=== PATIENT | female | born 1980 | race Caucasian/White ===

== ENCOUNTER 2019-12-19 09:23 | Outpatient (REF) | payer MEDICAID, SELFPAY ==
[2019-12-19 12:57] LABS: TSH reflex Free T4 1.15 mIU/mL (0.32-4.0)
[2019-12-24 14:41] LABS: Von Willebrand Factor Antigen 123 % (50-217)
[2019-12-24 15:02] LABS: Factor VIII Activity 137 % normal (50-180); Ristocetin Cofactor 78 % NORMAL (42-200)
== END 2019-12-19 09:24 | disposition home or self-care (01) ==
LOC: HO.LAB 09:23
PROVIDERS: PCP Internal Medicine; Referring Provider Internal Medicine; Visit Provider Obstetrics & Gynecology
DX: N93.9 Abnormal uterine and vaginal bleeding, unspecified (principal)
CPT/HCPCS: 36415; 84443; 85240; 85246; 88305; 99214; 99215

== ENCOUNTER 2020-01-03 10:36 | Outpatient (REF) | payer MEDICAID, SELFPAY ==
--- NOTE | 2020-01-03 11:00 | US_ITS ---
EXAMINATION: ULTRASOUND PELVIS COMPLETE. CLINICAL INFORMATION: Abnormal uterine vaginal bleeding. COMPARISON: None TECHNIQUE: Transabdominal and transvaginal imaging of pelvis is performed. FINDINGS: The uterus is anteverted, anteflexed and measures 11.5 cm in length, 4.7 cm in AP and 5.7 cm in transverse dimension. The uterus is homogeneous echotexture. Small nabothian cyst is seen in the cervix. Minimal free fluid is seen in the endometrial canal with endometrial thickness measurement of 0.8 cm Right ovary measures 4.3 x 3.6 x 2.8 cm and volume 22.7 mL. There is an anechoic cyst measuring 2.7 x 2.4 x 2.9 cm. Left ovary measures 3.1 x 3.1 x 2.4 cm and volume 12.1 mL. There is anechoic cyst measuring 2.3 x 2.0 x 2.2 cm. US/US pelvic complete IMPRESSION: Small nabothian cysts. Minimal fluid in the endometrial canal with endometrial thickness of 0.8 cm. Bilateral small simple ovarian cysts.
--- NOTE | 2020-01-03 11:00 | US_ITS ---
EXAMINATION: ULTRASOUND PELVIS COMPLETE. CLINICAL INFORMATION: Abnormal uterine vaginal bleeding. COMPARISON: None TECHNIQUE: Transabdominal and transvaginal imaging of pelvis is performed. FINDINGS: The uterus is anteverted, anteflexed and measures 11.5 cm in length, 4.7 cm in AP and 5.7 cm in transverse dimension. The uterus is homogeneous echotexture. Small nabothian cyst is seen in the cervix. Minimal free fluid is seen in the endometrial canal with endometrial thickness measurement of 0.8 cm Right ovary measures 4.3 x 3.6 x 2.8 cm and volume 22.7 mL. There is an anechoic cyst measuring 2.7 x 2.4 x 2.9 cm. Left ovary measures 3.1 x 3.1 x 2.4 cm and volume 12.1 mL. There is anechoic cyst measuring 2.3 x 2.0 x 2.2 cm. US/US transvaginal IMPRESSION: Small nabothian cysts. Minimal fluid in the endometrial canal with endometrial thickness of 0.8 cm. Bilateral small simple ovarian cysts.
== END 2020-01-03 10:37 | disposition home or self-care (01) ==
LOC: HO.US 10:36
PROVIDERS: PCP Internal Medicine; Visit Provider Obstetrics & Gynecology
DX: N93.9 Abnormal uterine and vaginal bleeding, unspecified (principal)
CPT/HCPCS: 76830; 76856

== ENCOUNTER 2021-08-31 15:53 | Outpatient (REF) | payer MEDICAID, SELFPAY ==
[2021-08-31 16:48] LABS: Hematocrit 28.2 % (37.0-47.0); Mean Corpuscular HGB Conc 28.4 g/dl (31.0-35.0); Mean Corpuscular Hemoglobin 17.9 pg (27.0-33.0); Mean Platelet Volume 9.5 fL (9.4-12.3); Platelet Count 500 X10*3/uL (160-400); Red Blood Count 4.47 X10*6/uL (4.20-5.50); Red Cell Distribution Width 19.1 % (11.0-16.0); White Blood Count 10.5 X10*3/uL (4.8-10.8)
[2021-08-31 16:51] LABS: Mean Corpuscular Volume 63.1 fL (80.0-98.0)
[2021-08-31 17:46] LABS: HCG Quantitative < 2 mIU/mL; TSH reflex Free T4 0.89 uIU/mL (0.32-4.0)
[2021-09-01 03:09] LABS: CT PCR NOT DETECTED (Not Detect.); NG PCR NOT DETECTED (Not Detect.)
[2021-09-03 06:46] LABS: HPV mRNA E6/E7 rflx Not Detected (Not Detected)
== END 2021-08-31 15:54 | disposition home or self-care (01) ==
LOC: HO.LAB 15:53
PROVIDERS: PCP Internal Medicine; Visit Provider Obstetrics & Gynecology
DX: Z01.419 Encounter for gynecological examination (general) (routine) without abnormal findings (principal); N93.9 Abnormal uterine and vaginal bleeding, unspecified
CPT/HCPCS: 36415; 84443; 84702; 85027; 87491; 87591; 87624; 88142

== ENCOUNTER 2021-09-24 09:04 | Outpatient (REF) | payer MEDICAID, SELFPAY | END 2021-09-24 09:05 | disposition home or self-care (01) | LOC: HO.LAB 09:04 | PROVIDERS: Visit Provider Obstetrics & Gynecology | DX: N93.9 Abnormal uterine and vaginal bleeding, unspecified (principal) | CPT/HCPCS: 58100; 88305 ==

== ENCOUNTER → 2021-10-12 10:53 | Outpatient (BNVA) | payer MEDICAID, SELFPAY | PROVIDERS: PCP Internal Medicine; Visit Provider Obstetrics & Gynecology | DX: N93.9 Abnormal uterine and vaginal bleeding, unspecified (principal) | CPT/HCPCS: 99212 ==

== ENCOUNTER → 2021-10-15 14:07 | Outpatient (BNVA) | payer MEDICAID, SELFPAY | PROVIDERS: PCP Internal Medicine; Visit Provider Obstetrics & Gynecology | DX: Z30.430 Encounter for insertion of intrauterine contraceptive device (principal) | CPT/HCPCS: 58300; J7298 ==

== ENCOUNTER 2021-10-20 10:43 | Outpatient (REF) | payer MEDICAID, SELFPAY ==
--- NOTE | ~2021-10-20 | US_ITS ---
EXAMINATION: US PELVIS CLINICAL INFORMATION: N93.9 - Abnormal uterine and vaginal bleeding, unspecified. Age 40. LMP 10/15/2021. COMPARISON: Ultrasound pelvis 01/03/2020 TECHNIQUE: Ultrasound of the pelvis is performed using both transabdominal and transvaginal transducers along with Doppler. Transvaginal imaging is performed due to inadequate visualization transabdominally. FINDINGS: Uterus: The uterus is anteverted and normal in size measuring 10.5 x 3.7 x 5.9 cm. Volume 91 mL. There is IUD in the uterine cavity. Endometrium is normal. No visible thickening. Double wall thickness estimated under 4 mm. The uterus is smooth in contour and has normal myometrial echogenicity. No visible fibroid. There are some small nabothian cysts in the cervix again seen, largest 0.7 cm. Trace fluid in the endocervical canal. Adnexa: Both ovaries are visualized. There is normal color flow to the adnexa. There is no ovarian torsion. There is no pelvic ascites or fluid collection. Right ovary measures 3.3 x 2.1 x 2.1 cm. Volume 7.6 mL. Incidental dominant follicle 1.3 cm. No right adnexal mass. Left ovary measures 3.6 x 1.8 x 1.9 cm. Volume 6.5 mL. No left adnexal mass. US/US pelvic and transvaginal IMPRESSION: Uterus: -Normal size. IUD present. Endometrial thickness is normal. -Incidental small nabothian cysts. No visible fibroid. Adnexa: -No adnexal mass or pelvic ascites.
--- NOTE | ~2021-10-20 | MM_ITS ---
EXAMINATION: MM SCREENING DIGITAL BREAST TOMOSYNTHESIS, BILATERAL CLINICAL INFORMATION: Screening. Asymptomatic. The lifetime risk of breast cancer based on the Tyrer-Cuzick Model is 12.9%. COMPARISON: Mammography: None TECHNIQUE: Digital breast tomosynthesis is performed in both the craniocaudal and mediolateral oblique views along with computer-aided detection (CAD). Synthesized 2D images are generated from the tomosynthesis. FINDINGS: There are scattered areas of fibroglandular density (ACR BI-RADS breast composition Category b). There are no significant masses, abnormal calcifications, or other abnormalities. MM/MM tomosynthesis screening BI IMPRESSION: No mammographic evidence of malignancy. ASSESSMENT: BI-RADS 1: Negative RECOMMENDATION: Routine annual mammography screening. This patient's information was entered into a reminder system with a target due date for their next mammogram.
== END 2021-10-20 10:44 | disposition home or self-care (01) ==
LOC: HO.US 10:43
PROVIDERS: Visit Provider Obstetrics & Gynecology
DX: N93.9 Abnormal uterine and vaginal bleeding, unspecified (principal); Z12.31 Encounter for screening mammogram for malignant neoplasm of breast
CPT/HCPCS: 76830; 76856; 77063; 77067

== ENCOUNTER 2021-10-21 12:45 | Outpatient (REF) | payer MEDICAID, SELFPAY | END 2021-10-21 12:46 | disposition home or self-care (01) | LOC: HO.MDS 12:45 | PROVIDERS: Visit Provider Internal Medicine | DX: D50.9 Iron deficiency anemia, unspecified (principal) | CPT/HCPCS: 96365; J1756 ==

== ENCOUNTER 2021-10-30 13:48 | Outpatient (REF) | payer MEDICAID, SELFPAY | END 2021-10-30 13:49 | disposition home or self-care (01) | LOC: HO.MDS 13:48 | PROVIDERS: Visit Provider Internal Medicine | DX: D50.9 Iron deficiency anemia, unspecified (principal) | CPT/HCPCS: 96365; J1756 ==

== ENCOUNTER 2021-11-06 13:53 | Outpatient (REF) | payer MEDICAID, SELFPAY | END 2021-11-06 13:54 | disposition home or self-care (01) | LOC: HO.MDS 13:53 | PROVIDERS: Visit Provider Internal Medicine | DX: D50.9 Iron deficiency anemia, unspecified (principal) | CPT/HCPCS: 96365; J1756 ==

== ENCOUNTER 2021-11-13 10:49 | Outpatient (REF) | payer MEDICAID, SELFPAY | END 2021-11-13 10:50 | disposition home or self-care (01) | LOC: HO.MDS 10:49 | PROVIDERS: Visit Provider Internal Medicine | DX: D50.9 Iron deficiency anemia, unspecified (principal) | CPT/HCPCS: 96365; J1756 ==

== ENCOUNTER 2021-11-18 10:26 | Outpatient (REF) | payer MEDICAID, SELFPAY | END 2021-11-18 10:27 | disposition home or self-care (01) | LOC: HO.MDS 10:26 | PROVIDERS: Visit Provider Internal Medicine | DX: D50.9 Iron deficiency anemia, unspecified (principal) | CPT/HCPCS: 96365; J1756 ==

== ENCOUNTER → 2022-01-14 14:08 | Outpatient (BNVA) | payer MEDICAID, SELFPAY | PROVIDERS: PCP Internal Medicine; Visit Provider Obstetrics & Gynecology | DX: Z30.431 Encounter for routine checking of intrauterine contraceptive device (principal); B37.2 Candidiasis of skin and nail; Z32.02 Encounter for pregnancy test, result negative | CPT/HCPCS: 81025; 99212 ==

== ENCOUNTER → 2022-09-02 14:35 | Outpatient (BNVA) | payer MEDICAID, SELFPAY | PROVIDERS: PCP Internal Medicine; Visit Provider Obstetrics & Gynecology ==

== ENCOUNTER 2022-09-28 17:57 | Emergency (ER) | payer MEDICAID, SELFPAY ==
--- NOTE | 2022-09-28 | ECG_ITS ---
Test Reason : CHEST PAIN Blood Pressure : / mmHG Vent. Rate : 080 BPM Atrial Rate : 080 BPM P-R Int : 150 ms QRS Dur : 076 ms QT Int : 372 ms P-R-T Axes : 043 016 024 degrees QTc Int : 429 ms Normal sinus rhythm Normal ECG No previous ECGs available Referred By: Generic ED Physician Electronically Signed By:LONI CHAMBERS MD
--- NOTE | ~2022-09-28 | XR_ITS ---
EXAMINATION: XR CHEST CLINICAL INFORMATION: Pain COMPARISON: None available. TECHNIQUE: 2 views of the chest were obtained. FINDINGS: The cardiomediastinal silhouette is within normal limits. The lungs are well expanded. There is no focal consolidation, edema, or effusion. No pneumothorax. No acute osseous abnormality. XR/XR chest 2V IMPRESSION: No evidence of acute cardiopulmonary findings .
[2022-09-28 18:14] VITALS: BP 139/92; PULSE 91; RESP 18; TEMP 36.1; O2SAT 100; BMI 36.0
--- NOTE | 2022-09-28 18:14 | ED.GENADULT ---
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 Pain is mostly localized in mid chest increases on palpation and movements been sharp intermittent lasting only for few sec, no shortness of breath Related Data Home Medications Medication Instructions Recorded Confirmed apixaban 5 mg tablet (Eliquis) 5 mg PO BID 08/31/21 10/06/21 famotidine 40 mg tablet 40 mg PO BEDTIME 08/31/21 Previous Rx's Medication Instructions Recorded clotrimazole-betamethasone 1 1 appl topical BID 5 days #45 grams 01/14/22 %-0.05 % topical cream xmjlqeitlu-wctiufmnzzblg-hgmggxfy 1 cap PO Q6H PRN headache #20 caps 09/28/22 50 mg-300 mg-40 mg capsule (Fioricet) Allergies Allergy/AdvReac Type Severity Reaction Status Date / Time Sulfa (Sulfonamide Allergy Intermediate rash Verified 09/28/22 18:14 Antibiotics) itching [SULFA (SULFONAMIDE ANTIBIOTICS)] Review of Systems Review of Systems: Yes all other systems are reviewed and are negative [facility] Past Medical History Medical History History of anemia History of thrombosis Surgical History History of History of tonsillectomy History of tubal ligation Family History Family History Maternal Grandmother Breast cancer Mother Uterine cancer Social History Social History Household Members: Spouse and Children Housing: House Alcohol intake: never Smoked in Last 30 Days: No Use of substances other than those prescribed or required for medical reasons: No Advance Directives: No Advance Directives Information Provided: No Patient : No service: No Current occupational status: employed Sexual orientation: Straight/Heterosexual Gender identity: Female Physical Exam ED Vital Signs: Vital Signs - 24 hr 09/28/22 18:14 Temperature 97.0 F Pulse Rate 91 Respiratory Rate 18 Blood Pressure 139/92 H Pulse Oximetry 100 Oxygen Delivery Method Room Air BMI result Body Mass Index 36.0 Appearance: Alert. Oriented X3. No acute distress. Eyes: No pallor/icterus ENT: Pharynx normal. Oral Mucosa moist Neck: Normal inspection. Neck supple. CVS: Normal heart rate and rhythm. Pulses normal. Tenderness left 2nd intercostal space Respiratory: No respiratory distress. Equal air entry bilateral, no wheezing/rales/rhonchi Abdomen: Soft and nontender. Bowel sounds are present, no mass palpable, no CVA tenderness Skin: Skin warm and dry. Normal skin color. Normal skin turgor. Extremities: No lower extremity edema. No calf tenderness Neuro: Oriented X 3. No motor deficit. No sensory deficit.No cerebellar signs , cranial nerves II-XII intact Course Course Course Narrative: RME- 41 year old female presents for evaluation of chest pain and headache for the last few days. Plan for EKG, chest x-ray, labs, covid swab. Patient has history of DVT on Eliquis Medications Administered Discontinued Medications Generic Name Dose Route Start Last Admin Trade Name Freq PRN Reason Stop Dose Admin Acetaminophen/Butalbital/Caffeine 1 tab 09/28/22 21:54 09/28/22 22:01 Butalb/Acetamin/Caff 50/325/40 Tablet PO 09/28/22 21:55 1 tab ONCE ONE Administration Medical Decision Making Medical Decision Making [facility] Narrative: Patient has atypical chest pain with normal cardiogram heart score 0 high sensitive troponin negative reproducible on palpation headache as in the past when she has migraine headache will give Fioricet Lab Data [facility] Lab Attestation statement: I reviewed the patient's lab results. 09/28/22 20:12 09/28/22 20:12 Labs: Lab Results 09/28/22 09/28/22 09/28/22 Range/Units 20:12 20:12 20:12 WBC 9.5 (4.8-10.8) X10*3/uL RBC 4.92 (4.20-5.50) X10*6/uL Hgb 12.2 D (12.0-16.0) g/dl Hct 38.2 D (37.0-47.0) % MCV 77.6 L (80.0-98.0) fL MCH 24.8 L (27.0-33.0) pg MCHC 31.9 (31.0-35.0) g/dl RDW 15.9 (11.0-16.0) % Plt Count 408 H D (160-400) X10*3/uL MPV 9.5 (9.4-12.3) fL Immature Gran % (Auto) 0.3 (0.0-0.4) % Neut % (Auto) 62.8 (45-73) % Lymph % (Auto) 24.4 (20-40) % Victoria % (Auto) 7.9 (2-11) % Eos % (Auto) 3.4 (0-4) % Baso % (Auto) 1.2 (0-2) % Lymph # (Auto) 2.3 (1.2-4.9) X10*3/uL Victoria # (Auto) 0.8 (0.1-1.2) X10*3/uL Eos # (Auto) 0.3 (0.0-0.4) X10*3/uL Baso # (Auto) 0.1 (0.0-0.2) X10*3/uL Abs Immat Gran (auto) 0.03 (0.00-0.03) X10*3/uL Absolute Neuts (auto) 6.0 (2.0-8.3) x10*3/uL Absolute Nucleated RBC 0.000 (0.0-0.012) X10*3/uL Nucleated RBC % (auto) 0.0 (0.0-0.2) /100WBC PT 14.2 H (11.1-13.3) SEC INR 1.2 H (0.9-1.1) APTT 32.9 (26.0-36.4) SEC Sodium 141 (135-145) mmol/L Potassium 4.5 (3.3-5.1) mmol/L Chloride 107 (96-108) mmol/L Carbon Dioxide 27 (22-29) mmol/L Anion Gap 12 (12-20) BUN 15 (9-16) mg/dL Creatinine 0.70 (0.5-1.4) mg/dL Estim Creat Clear Calc 115.9 Estimated GFR > 60 Random Glucose 80 (60-115) mg/dL Calcium 8.8 (8.4-10.2) mg/dL Total Bilirubin 0.4 (0.0-1.0) mg/dL AST 12 (5-31) U/L ALT 13 (0-31) U/L Alkaline Phosphatase 65 (39-117) U/L Troponin I High Sens (<3.5-17.0) ng/L B-Natriuretic Peptide (<100) pg/mL Total Protein 7.5 (6.5-8.0) g/dL Albumin 3.9 (3.5-5.0) g/dL Lipase 28 (8-78) U/L COVID-19 ([facility]FIE) (Negative) COVID-19 Clin Com 09/28/22 09/28/22 09/28/22 Range/Units 20:12 20:12 20:12 WBC (4.8-10.8) X10*3/uL RBC (4.20-5.50) X10*6/uL Hgb (12.0-16.0) g/dl Hct (37.0-47.0) % MCV (80.0-98.0) fL MCH (27.0-33.0) pg MCHC (31.0-35.0) g/dl RDW (11.0-16.0) % Plt Count (160-400) X10*3/uL MPV (9.4-12.3) fL Immature Gran % (Auto) (0.0-0.4) % Neut % (Auto) (45-73) % Lymph % (Auto) (20-40) % Victoria % (Auto) (2-11) % Eos % (Auto) (0-4) % Baso % (Auto) (0-2) % Lymph # (Auto) (1.2-4.9) X10*3/uL Victoria # (Auto) (0.1-1.2) X10*3/uL Eos # (Auto) (0.0-0.4) X10*3/uL Baso # (Auto) (0.0-0.2) X10*3/uL Abs Immat Gran (auto) (0.00-0.03) X10*3/uL Absolute Neuts (auto) (2.0-8.3) x10*3/uL Absolute Nucleated RBC (0.0-0.012) X10*3/uL Nucleated RBC % (auto) (0.0-0.2) /100WBC PT (11.1-13.3) SEC INR (0.9-1.1) APTT (26.0-36.4) SEC Sodium (135-145) mmol/L Potassium (3.3-5.1) mmol/L Chloride (96-108) mmol/L Carbon Dioxide (22-29) mmol/L Anion Gap (12-20) BUN (9-16) mg/dL Creatinine (0.5-1.4) mg/dL Estim Creat Clear Calc Estimated GFR Random Glucose (60-115) mg/dL Calcium (8.4-10.2) mg/dL Total Bilirubin (0.0-1.0) mg/dL AST (5-31) U/L ALT (0-31) U/L Alkaline Phosphatase (39-117) U/L Troponin I High Sens < 2.7 (<3.5-17.0) ng/L B-Natriuretic Peptide 17 (<100) pg/mL Total Protein (6.5-8.0) g/dL Albumin (3.5-5.0) g/dL Lipase (8-78) U/L COVID-19 ([facility]FI[facility]) Negative (Negative) COVID-19 Clin Com See Note Independent Interpretation I performed an independent interpretation of an: EKG Interpretation: Normal sinus rhythm heart rate 80 beats minute, no acute ST-T wave change no acute ischemia Discharge Plan Discharge Clinical Impression: Atypical chest pain, Costochondral chest pain, Migraine Patient Disposition: Home, Self-Care Instructions: Migraine Headache (ED), Chest Wall Pain (ED) Additional Instructions: Taking medication for headache as prescribed Follow with PCP No chest pain does not seem to be coming from the heart likely inflammation of the cartilage Prescriptions: New gflkpknomz-wlrjbmzoqwrkt-qjtl [Fioricet] 50-300-40 mg capsule 1 cap PO Q6H PRN (Reason: headache) Qty: 20 0RF No Action Eliquis 5 mg tablet 5 mg PO BID famotidine 40 mg tablet 40 mg PO BEDTIME Mirena 20 mcg/24 hours (7 yrs) 52 mg intrauterine device 1 device intrauterine ONCE Qty: 1 0RF clotrimazole-betamethasone 1-0.05 % cream 1 appl topical BID 5 Days Qty: 45 0RF Interventions: ED Discharge Assessment Last Done: 09/28/22 22:26 Discharge Date/Time: 09/28/22 22:26
[2022-09-28 20:19] LABS: MANUAL DIFF FLAG NO
[2022-09-28 20:23] LABS: Basophils Absolute Auto 0.1 X10*3/uL (0.0-0.2); Basophils Percent Auto 1.2 % (0-2); Eosinophils Absolute Auto 0.3 X10*3/uL (0.0-0.4); Eosinophils Percent Auto 3.4 % (0-4); Hematocrit 38.2 % (37.0-47.0); Hemoglobin 12.2 g/dl (12.0-16.0); Imm Gran Abs Auto 0.03 X10*3/uL (0.00-0.03); Imm Gran Pct Auto 0.3 % (0.0-0.4); Lymphocytes Absolute Auto 2.3 X10*3/uL (1.2-4.9); Lymphocytes Percent Auto 24.4 % (20-40); Mean Corpuscular HGB Conc 31.9 g/dl (31.0-35.0); Mean Corpuscular Hemoglobin 24.8 pg (27.0-33.0); Mean Corpuscular Volume 77.6 fL (80.0-98.0); Mean Platelet Volume 9.5 fL (9.4-12.3); Monocytes Absolute Auto 0.8 X10*3/uL (0.1-1.2); Monocytes Percent Auto 7.9 % (2-11); Neutrophils Percent Auto 62.8 % (45-73); Platelet Count 408 X10*3/uL (160-400); Red Blood Count 4.92 X10*6/uL (4.20-5.50); Red Cell Distribution Width 15.9 % (11.0-16.0); White Blood Count 9.5 X10*3/uL (4.8-10.8)
[2022-09-28 20:29] LABS: INTERNATIONAL NORM RATIO 1.2 (0.9-1.1); Prothrombin Time 14.2 SEC (11.1-13.3)
[2022-09-28 20:31] LABS: COVID-19 Test Negative (Negative); IDNOW Serial# 08D9AD1C
[2022-09-28 20:32] LABS: Partial Thromboplastin Time 32.9 SEC (26.0-36.4)
[2022-09-28 20:37] LABS: Alanine Aminotransferase 13 U/L (0-31); Albumin Level 3.9 g/dL (3.5-5.0); Alkaline Phosphatase 65 U/L (39-117); Anion Gap 12 (12-20); Aspartate Amino Transferase 12 U/L (5-31); Bilirubin Total 0.4 mg/dL (0.0-1.0); Blood Urea Nitrogen 15 mg/dL (9-16); Calcium 8.8 mg/dL (8.4-10.2); Carbon Dioxide 27 mmol/L (22-29); Chloride 107 mmol/L (96-108); Creatinine Clr Calc Pharmacy 115.9; Estimated Glomerular Filt Rate > 60; Glucose Random 80 mg/dL (60-115); Lipase 28 U/L (8-78); Potassium 4.5 mmol/L (3.3-5.1); Sodium 141 mmol/L (135-145); Total Protein 7.5 g/dL (6.5-8.0)
[2022-09-28 20:43] LABS: B Type Natriuretic Peptide 17 pg/mL (<100)
[2022-09-28 20:47] LABS: Troponin-I High Sensitivity < 2.7 ng/L (<3.5-17.0)
[2022-09-28] MEDS: Butalb/Acetamin/Caff 50/325/40 TABLET 1 TAB PO (22:01)
== END 2022-09-28 22:26 | disposition home or self-care (01) ==
PROVIDERS: Physician Assistant; Emergency Provider Internal Medicine; PCP Internal Medicine
DX: G43.809 Other migraine, not intractable, without status migrainosus (principal); R07.89 Other chest pain; M94.0 Chondrocostal junction syndrome [Tietze]; Z20.822 Contact with and (suspected) exposure to COVID-19; D64.9 Anemia, unspecified; Z86.718 Personal history of other venous thrombosis and embolism; Z79.899 Other long term (current) drug therapy; Z79.01 Long term (current) use of anticoagulants
CPT/HCPCS: 36415; 71046; 80053; 83690; 83880; 84484; 85025; 85610; 85730; 87635; 93005; 99283; 99285

== ENCOUNTER → 2022-09-28 19:58 | Outpatient (BNV) | payer MEDICAID, SELFPAY | PROVIDERS: Emergency Provider Internal Medicine; PCP Internal Medicine; Visit Provider Internal Medicine Cardiovascular Disease | DX: R07.9 Chest pain, unspecified (principal) | CPT/HCPCS: 93010 ==

== ENCOUNTER 2022-10-21 11:16 | Outpatient (REF) | payer MEDICAID, SELFPAY ==
--- NOTE | ~2022-10-21 | MM_ITS ---
EXAMINATION: MM SCREENING DIGITAL BREAST TOMOSYNTHESIS, BILATERAL CLINICAL INFORMATION: Screening. Asymptomatic. COMPARISON: Mammography: 10/20/2021. TECHNIQUE: Digital breast tomosynthesis is performed in both the craniocaudal and mediolateral oblique views along with computer-aided detection (CAD). Synthesized 2D images are generated from the tomosynthesis. FINDINGS: There are scattered areas of fibroglandular density (ACR BI-RADS breast composition Category b). There are no suspicious masses, suspicious grouped calcifications, or areas of architectural distortion. The parenchymal pattern is stable from prior exams. MM/MM tomosynthesis screening BI IMPRESSION: No mammographic evidence of malignancy. ASSESSMENT: BI-RADS BI-RADS 1 - Negative RECOMMENDATION: Routine annual mammography screening. 1 year F/U This examination should not preclude the clinical evaluation of a suspicious palpable abnormality. This patient's information was entered into a reminder system with a target due date for their next mammogram.
== END 2022-10-21 11:17 | disposition home or self-care (01) ==
LOC: HO.MAMMO 11:16
PROVIDERS: PCP Internal Medicine; Visit Provider Obstetrics & Gynecology
DX: Z12.31 Encounter for screening mammogram for malignant neoplasm of breast (principal)
CPT/HCPCS: 77063; 77067

== ENCOUNTER → 2022-10-21 11:45 | Outpatient (BNV) | payer MEDICAID, SELFPAY | PROVIDERS: PCP Internal Medicine; Visit Provider Radiology Diagnostic Radiology | DX: Z12.31 Encounter for screening mammogram for malignant neoplasm of breast (principal) | CPT/HCPCS: 77063; 77067 ==

== ENCOUNTER 2022-11-18 14:27 | Outpatient (AMB) | payer MEDICAID, SELFPAY ==
--- NOTE | 2022-11-18 14:36 | A.OFFVIS_ITS ---
Intake Vital Signs 11/18/22 14:42 Height 5 ft 4 in Weight 209 lb 7.026 oz BMI 35.9 BP 124/86 Intake Visit Reasons: vaginal bleeding Director Of Communications Required: Yes Director Of Communications Language: Auto Body Service Mechanic Name: Demetria RODRIGUEZ Information Interpreted: non-clinical & clinical Senior Storage Administrator: Senior Storage Administrator Present (Demetria RODRIGUEZ) Accompanied by: Self / Same As Patient Allergies Sulfa (Sulfonamide Antibiotics) [SULFA (SULFONAMIDE ANTIBIOTICS)] Allergy (Intermediate, Verified 11/18/22 14:43) rash itching HPI HPI Comments History of Present Illness Details The patient is presenting c/o irregular bleeding associated with passage of blood clots and abdominal cramping. it started few weeks ago and is getting worse no other associated symptoms. The patient has Mirena IUD inserted a year ago. Last co testing was negative in 08/26. Last mammogram was BI-RADS 1 in 10/27 [facility] Medical History History of anemia History of thrombosis Surgical History History of tonsillectomy History of tubal ligation History of Family History Maternal Grandmother Breast cancer Mother Uterine cancer Social History Household Members: Spouse and Children Housing: House Alcohol intake: never service: No Current occupational status: employed Sexual orientation: Straight/Heterosexual Gender identity: Female Female Reproductive History Menstrual Age of Menarche: 11 control method: progestin IUCD Review of Systems Const All systems reviewed & are unremarkable except as noted in HPI and below Physical Exam Vital Signs: Last Vital Signs BP 124/86 11/18/22 14:42 BMI result Body Mass Index 35.9 General: Yes no CVA tenderness External Female Exam: normal external appearance and normal appearance of the urethra Speculum Exam - Vagina: normal appearance of the vagina, normal palpation, no lesions and no masses Speculum Exam - Cervix: normal appearance of the cervix, normal palpation, no lesions, no masses, nontender and Other cervical findings present (IUD string in place) Bimanual exam- vagina & uterus: normal bimanual exam, normal palpation, uterine size normal, normal palpation, uterine shape normal, No Cervical tenderness present and non-tender Bimanual Exam- Adnexa, other: normal adnexae Back/Spine/Pelvis Back: no CVA tenderness Results AMB Test Urine AMB Test Urine Negative Last Edit by Demetria Magana CMA on 14:53 Results Reviewed Results Reviewed: Laboratory Last Values Tst Clinic Negative 11/18/22 14:53 Assessment & Plan Assessment & Plan (1) Abnormal uterine bleeding: Comment: History of DVT Mirena IUD Code(s): N93.9 - Abnormal uterine and vaginal bleeding, unspecified Plan: Co testing not indicated this, GC and chlamydia taken CBC, TSH, HCG, and pelvic ultrasound ordered. Discussed with the patient the different causes of abnormal bleeding including thyroid disorders, uterine and ovarian pathology, endometrial hyperplasia, carcinoma and other potential causes. Discussed with the patient the work up including CBC (to r/o anemia), TSH, pelvic Ultrasound, endometrial biopsy to r/o endometrial pathology. All questions answered and the patient verbalized understanding. Instructed the patient to schedule an appointment for an endometrial biopsy in 2 weeks. Orders: Orders AMB HCG Urine Test Today Z32.02 - Encounter for test, result negative TSH reflex Free T4 Today N93.9 - Abnormal uterine and vaginal bleeding, unspecified Prolactin Today N93.9 - Abnormal uterine and vaginal bleeding, unspecified HCG Quantitative Today N93.9 - Abnormal uterine and vaginal bleeding, unspecified Complete Blood Count no Diff Today N93.9 - Abnormal uterine and vaginal bleeding, unspecified US pelvic and transvaginal Today N93.9 - Abnormal uterine and vaginal bleeding, unspecified Coding Level of Care Code Est Pt Level 3 (36143) Diagnoses Abnormal uterine bleeding N93.9
[2022-11-18 14:42] VITALS: BP 124/86; BMI 35.9
== END 2022-11-18 15:04 | disposition home or self-care (01) ==
PROVIDERS: PCP Internal Medicine; Visit Provider Obstetrics & Gynecology
DX: Z32.02 Encounter for pregnancy test, result negative (principal); N93.9 Abnormal uterine and vaginal bleeding, unspecified
CPT/HCPCS: 99213

== ENCOUNTER 2022-11-18 14:27 | Outpatient (REF) | payer MEDICAID, SELFPAY | END 2022-11-18 14:28 | disposition home or self-care (01) | LOC: HO.LNP 14:27 | PROVIDERS: PCP Internal Medicine; Visit Provider Obstetrics & Gynecology | DX: N93.9 Abnormal uterine and vaginal bleeding, unspecified (principal) | CPT/HCPCS: 81025; 99212 ==

== ENCOUNTER 2022-11-18 15:11 | Outpatient (REF) | payer MEDICAID, SELFPAY ==
[2022-11-18 15:50] LABS: Hematocrit 37.7 % (37.0-47.0); Hemoglobin 12.2 g/dl (12.0-16.0); Mean Corpuscular HGB Conc 32.4 g/dl (31.0-35.0); Mean Corpuscular Hemoglobin 25.2 pg (27.0-33.0); Mean Corpuscular Volume 77.9 fL (80.0-98.0); Mean Platelet Volume 9.7 fL (9.4-12.3); Platelet Count 399 X10*3/uL (160-400); Red Blood Count 4.84 X10*6/uL (4.20-5.50); Red Cell Distribution Width 14.9 % (11.0-16.0); White Blood Count 8.6 X10*3/uL (4.8-10.8)
[2022-11-18 17:06] LABS: HCG Quantitative < 2 mIU/mL; TSH reflex Free T4 1.22 uIU/mL (0.32-4.0)
[2022-11-19 10:00] LABS: CT PCR NOT DETECTED (Not Detect.); NG PCR NOT DETECTED (Not Detect.)
[2022-11-19 23:58] LABS: Prolactin 8.7 ng/mL
== END 2022-11-18 15:12 | disposition home or self-care (01) ==
LOC: HO.LAB 15:11
PROVIDERS: Visit Provider Obstetrics & Gynecology
DX: Z30.431 Encounter for routine checking of intrauterine contraceptive device (principal); N93.9 Abnormal uterine and vaginal bleeding, unspecified
CPT/HCPCS: 0353U; 84146; 84443; 84702; 85027

== ENCOUNTER 2022-11-30 14:45 | Outpatient (REF) | payer MEDICAID, SELFPAY ==
--- NOTE | ~2022-11-30 | US_ITS ---
EXAMINATION: US PELVIS COMPLETE CLINICAL INFORMATION: Abnormal uterine bleeding COMPARISON: Pelvic ultrasound 10/20/2021 TECHNIQUE: Transabdominal and transvaginal imaging was performed. FINDINGS: The uterus is of normal size and echogenicity measuring 11.7 x 4.4 x 6.2 cm. A regular homogeneous endometrium is identified measuring 0.5 cm. Nabothian cysts in the cervix. Trace fluid in the endocervical canal. Intrauterine device in place. section scar diverticulum. Both ovaries are of normal size and echogenicity. The right measures 3.6 x 1.8 x 2.6 cm for a volume of 8.8 mL. The left measures 2.6 x 1.5 x 2.6 cm for a volume of 8.3 mL. There is no pelvic free fluid. US/US pelvic and transvaginal IMPRESSION: 1. Intrauterine device in place. 2. section scar diverticulum. 3. Trace fluid in the endocervical canal. 4. Otherwise unremarkable pelvic ultrasound.
== END 2022-11-30 14:46 | disposition home or self-care (01) ==
LOC: HO.US 14:45
PROVIDERS: PCP Internal Medicine; Visit Provider Obstetrics & Gynecology
DX: N93.9 Abnormal uterine and vaginal bleeding, unspecified (principal)
CPT/HCPCS: 76830; 76856

== ENCOUNTER 2023-03-09 07:57 | Outpatient (AMB) | payer MEDICAID, SELFPAY ==
--- NOTE | 2023-03-09 08:01 | A.OFFVIS_ITS ---
Intake Vital Signs 03/09/23 08:08 Height 5 ft 4 in Weight 209 lb 7.026 oz BMI 35.9 BP 122/76 Intake Visit Reasons: Follow AUB Applications Processor Required: Yes Applications Processor Language: Graphic Designer Name: Demetria RODRIGUEZ Information Interpreted: non-clinical & clinical Venereal Disease Control Head: Venereal Disease Control Head Present (Demetria RODRIGUEZ) Accompanied by: Self / Same As Patient Allergies Sulfa (Sulfonamide Antibiotics) [SULFA (SULFONAMIDE ANTIBIOTICS)] Allergy (Intermediate, Verified 03/09/23 08:10) rash itching HPI HPI Comments History of Present Illness Details Here for EMB [facility] Medical History History of anemia History of thrombosis Surgical History History of tonsillectomy History of tubal ligation History of Family History Maternal Grandmother Breast cancer Mother Uterine cancer Social History Household Members: Spouse and Children Housing: House Alcohol intake: never service: No Current occupational status: employed Sexual orientation: Straight/Heterosexual Gender identity: Female Female Reproductive History Menstrual Age of Menarche: 11 Physical Exam Vital Signs: Last Vital Signs BP 122/76 03/09/23 08:08 BMI result Body Mass Index 35.9 Office Procedures Endometrial Biopsy Details: The patient was counseled regarding the indication and benefits of endometrial sampling to rule out endometrial pathology including not limited to endometrial hyperplasia or endometrial cancer and others; The alternatives (Either do nothing vs. hysteroscopy D&C) & the risks were discussed with the patient including but not limited: pain, uterine perforation, bleeding, infection, possible injury to bladder, bowel, ureter, possible need for blood transfusion with all its possible risks. The patient verbalized understanding all questions answered and signed consent. The patient was placed into the dorsal lithotomy position; a speculum was inserted in the vagina. Using aseptic technique for the procedure, the cervix was cleansed with Betadine. The anterior lip of the cervix was grasped with a single tooth tenaculum. The uterus was sounded to 10 cm with a 4 mm Pipelle was used. Tissues samples were obtained and placed in formalin, in a patient labeled container and sent to the pathology department. At the end of the procedure, there was minimal bleeding noted The patient tolerated the procedure well and was discharged in good condition with the following instructions: Nothing in the vagina until the bleeding stops. No sex until the bleeding stops, to call if any of the following occurs: fever (>100.4), flu-like symptoms, abdominal pain, heavy bleeding, four smelling vaginal discharge. The patient was instructed to schedule a Follow up appointment in 2 weeks to discuss pathology results of the biopsy and treatment options. This note was generated with a voice recognition program. Some errors may have been overlooked during the review of this note. Sometimes these errors may affect the content or meaning of a given sentence. [id number] Biopsy Assessment & Plan Assessment & Plan (1) Abnormal uterine bleeding: Comment: History of DVT Mirena IUD Code(s): N93.9 - Abnormal uterine and vaginal bleeding, unspecified Plan: EMB done, see procedure note Orders: Orders AMB Endometrial Biopsy Today N93.9 - Abnormal uterine and vaginal bleeding, unspecified Coding Level of Care Code Procedure Only Diagnoses Abnormal uterine bleeding N93.9 CPT Codes Endometrial Biopsy - CPT: 35443-[id number] Biopsy ([id number])
[2023-03-09 08:08] VITALS: BP 122/76; BMI 35.9
== END 2023-03-09 08:32 | disposition home or self-care (01) ==
PROVIDERS: PCP Internal Medicine; Referring Provider Internal Medicine; Visit Provider Obstetrics & Gynecology
DX: N93.9 Abnormal uterine and vaginal bleeding, unspecified (principal); Z32.02 Encounter for pregnancy test, result negative
CPT/HCPCS: 58100

== ENCOUNTER 2023-03-09 07:57 | Outpatient (REF) | payer MEDICAID, SELFPAY | END 2023-03-09 07:58 | disposition home or self-care (01) | LOC: HO.LNP 07:57 | PROVIDERS: PCP Internal Medicine; Visit Provider Obstetrics & Gynecology | DX: N93.9 Abnormal uterine and vaginal bleeding, unspecified (principal); Z32.02 Encounter for pregnancy test, result negative | CPT/HCPCS: 58100; 81025; 88305 ==

== ENCOUNTER 2023-04-13 07:30 | Outpatient (AMB) | payer MEDICAID, SELFPAY ==
--- NOTE | 2023-04-13 07:41 | MHC.OFFVIS ---
Intake Vital Signs 04/13/23 07:42 Height 5 ft 4 in Weight 209 lb 7.026 oz BMI 35.9 BP 120/74 Intake Visit Reasons: EMB Results Information And Referral Director Required: Yes Information And Referral Director Language: Precision Aircraft Structure Assembler Name: Demetria RODRIGUEZ Information Interpreted: non-clinical & clinical Accompanied by: Self / Same As Patient Allergies Sulfa (Sulfonamide Antibiotics) [SULFA (SULFONAMIDE ANTIBIOTICS)] Allergy (Intermediate, Verified 04/13/23 07:42) rash itching HPI HPI Comments History of Present Illness Details The patient is presenting for follow-up to discuss the results of her abnormal uterine bleeding workup and options of treatment. The following workup was done.: H&H= 12.2/37.7 TSH, prolactin, hCG, GC and chlamydia were negative. Endometrial biopsy pathology showed the following: -Chronic endometritis with focal necrosis, breakdown and acute inflammation (see comment) -Benign endometrium with atrophic glands and decidual stromal change consistent with progestin effect; no atypia carcinoma. Comment: The acute inflammation may be due to breakdown or infection and clinical correlation is necessary Co testing was done in 08/26 was negative. Mammogram was BI-RADS 1. Pelvic ultrasound showed the following: The uterus is of normal size and echogenicity measuring 11.7 x 4.4 x 6.2 cm. A regular homogeneous endometrium is identified measuring 0.5 cm. Nabothian cysts in the cervix. Trace fluid in the endocervical canal. Intrauterine device in place. section scar diverticulum. Both ovaries are of normal size and echogenicity. The right measures 3.6 x 1.8 x 2.6 cm for a volume of 8.8 mL. The left measures 2.6 x 1.5 x 2.6 cm for a volume of 8.3 mL. There is no pelvic free fluid. [facility] Medical History History of anemia History of thrombosis Surgical History History of tonsillectomy History of tubal ligation History of Family History Maternal Grandmother Breast cancer Mother Uterine cancer Social History Household Members: Spouse and Children Housing: House Alcohol intake: never service: No Current occupational status: employed Sexual orientation: Straight/Heterosexual Gender identity: Female Female Reproductive History Menstrual Age of Menarche: 11 Review of Systems Const All systems reviewed & are unremarkable except as noted in HPI and below Reports as per HPI and Reports no additional complaints GI Reports no additional complaints Reports no additional complaints Physical Exam Vital Signs: Last Vital Signs BP 120/74 04/13/23 07:42 BMI result Body Mass Index 35.9 Assessment & Plan Assessment & Plan (1) Abnormal uterine bleeding: Comment: History of DVT Mirena IUD Code(s): N93.9 - Abnormal uterine and vaginal bleeding, unspecified Plan: Discussed with the patient the results of the work up done and options of treatment including Lysteda, BCP's (contraindicated with a history of DVT on Eliquis), stay on Mirena IUD, endometrial ablation and hysterectomy. All pros, cons, risks and benefits if each option was discussed with the patient and the patient decided to stay with Mirena IUD. Instructions given the patient to call in case of recurrence of abnormal uterine bleeding. All questions answered the patient verbalized understanding. Coding Level of Care Code Est Pt Level 3 (11068) Diagnoses Abnormal uterine bleeding N93.9
[2023-04-13 07:42] VITALS: BP 120/74; BMI 35.9
== END 2023-04-13 12:40 | disposition home or self-care (01) ==
PROVIDERS: PCP Internal Medicine; Visit Provider Obstetrics & Gynecology
DX: N93.9 Abnormal uterine and vaginal bleeding, unspecified (principal)
CPT/HCPCS: 99213

== ENCOUNTER → 2023-04-13 07:30 | Outpatient (BNVA) | payer MEDICAID, SELFPAY | PROVIDERS: PCP Internal Medicine; Visit Provider Obstetrics & Gynecology | DX: N93.9 Abnormal uterine and vaginal bleeding, unspecified (principal) | CPT/HCPCS: 99212 ==

== ENCOUNTER 2023-09-05 07:27 | Outpatient (AMB) | payer MEDICAID, SELFPAY ==
--- NOTE | 2023-09-05 07:42 | A.OFFVIS_ITS ---
Vital Signs 09/05/23 07:43 Height 5 ft 4 in Weight 214 lb 8 oz BMI 36.8 BP 122/68 Blood Pressure Location Lt brachial Position Sitting Intake Visit Reasons: CUSTOMER SOLUTIONS TEAMMATE annual exam/DO NOT RS Allergies Sulfa (Sulfonamide Antibiotics) [SULFA (SULFONAMIDE ANTIBIOTICS)] Allergy (Intermediate, Verified 09/05/23 07:45) rash itching Is last menstrual period known: Yes Last menstrual period: 08/22/23 HPI Comments Details: Presenting for annual exam. No complaints. Last Pap/HPV was negative in 08/26 Last Mammogram was BI-RADS 1 in 10/27 [facility] Medical History History of anemia History of thrombosis Surgical History History of tonsillectomy History of tubal ligation History of Family History Maternal Grandmother Breast cancer Mother Uterine cancer Social History Household Members: Spouse and Children Housing: House Alcohol intake: never service: No Current occupational status: employed Sexual orientation: Straight/Heterosexual Gender identity: Female Female Reproductive History Menstrual Age of Menarche: 11 Duration of menses: 6-7 days Date of last menstrual period: 08/22/23 control method: progestin IUCD Total pregnancies: 4 Full term: 2 Ab spontaneous: 2 Date of last pap smear: 09/01/21 History of abnormal pap smear: No History of STI: No Date of Mammogram: 10/21/22 Review of Systems Const All systems reviewed & are unremarkable except as noted in HPI and below Card Reports as per HPI Resp Reports as per HPI GI Reports as per HPI and Reports no additional complaints Reports as per HPI Physical Exam Vital Signs: Last Vital Signs BP 122/68 09/05/23 07:43 BMI result Body Mass Index 36.8 Const General: cooperative, healthy appearing and comfortable Chest Chest palpation & inspection: normal inspection of the chest and normal palpation of entire chest wall Breast/axilla inspection: normal inspection of the breasts and normal inspection of the axillae Breast/axilla palpation: normal palpation of the breasts, normal palpation of the axillae and no axillary lymphadenopathy Resp Effort & Inspection: normal respiratory effort Auscultation: clear to auscultation bilaterally Percussion: percussion normal Cardio Palpation: normal PMI Rate: regular rate Rhythm: regular rhythm Heart sounds: no murmurs and no rubs Peripheral pulses: Peripheral pulses 2+ throughout GI Inspection: Yes normal to inspection Palpation (GI): Soft to palpation, nontender, no guarding, not rigid and No hepatosplenomegaly present Percussion: Yes normal to percussion Auscultation: normal bowel sounds Rectal Exam - Female: deferred General: Yes bladder normal to palpation External Female Exam: No lesion Speculum Exam - Vagina: normal appearance of the vagina, normal palpation, normal vaginal discharge and not erythematous Speculum Exam - Cervix: normal appearance of the cervix and normal palpation Bimanual exam- vagina & uterus: normal bimanual exam, normal palpation, uterine size normal, bladder normal to palpation, consistency normal and normal palpation Bimanual Exam- Adnexa, other: normal adnexae, no masses and no tenderness Assessment & Plan Assessment & Plan (1) Well woman exam: Code(s): Z01.419 - Encounter for gynecological examination (general) (routine) without abnormal findings Category: Medical Plan: Cotesting not indicated this year. Instructions given the patient to schedule next screening Mammogram in 10/28, order placed. Counseled the patient about the recommended dietary allowance of 1000 mg of Calcium & 600 IU of vitamin D. The patient was instructed to perform monthly self-breast exams and to schedule an annual exam in a year; All questions answered and the patient verbalized understanding. Instructed the patient to schedule annual exam in a year The Communication with the patient was through Demetria Magana MA, certified desktop support associate. Orders: Orders MM tomosynthesis screening BI Today Z12.31 - Encounter for screening mammogram for malignant neoplasm of breast Coding Level of Care Code Est Pt Prev Care 40-64y(81956) Diagnoses Well woman exam Z01.419
[2023-09-05 07:43] VITALS: BP 122/68; BMI 36.8
== END 2023-09-05 08:20 | disposition home or self-care (01) ==
PROVIDERS: PCP Internal Medicine; Referring Provider Internal Medicine; Visit Provider Obstetrics & Gynecology
DX: Z01.419 Encounter for gynecological examination (general) (routine) without abnormal findings (principal)
CPT/HCPCS: 99396

== ENCOUNTER → 2023-09-05 07:27 | Outpatient (BNVA) | payer MEDICAID, SELFPAY | PROVIDERS: PCP Internal Medicine; Visit Provider Obstetrics & Gynecology | DX: Z01.419 Encounter for gynecological examination (general) (routine) without abnormal findings (principal) | CPT/HCPCS: 99396 ==

== ENCOUNTER 2024-02-16 09:53 | Outpatient (REF) | payer OTHER, SELFPAY ==
[2024-02-17 12:30] LABS: CT PCR DETECTED (Not Detect.); NG PCR NOT DETECTED (Not Detect.)
== END 2024-02-16 09:54 | disposition home or self-care (01) ==
LOC: HO.LNP 09:53
PROVIDERS: PCP Internal Medicine; Visit Provider Obstetrics & Gynecology
DX: R31.29 Other microscopic hematuria (principal)
CPT/HCPCS: 87491; 87591

== ENCOUNTER 2024-02-16 09:53 | Outpatient (AMB) | payer OTHER, SELFPAY ==
--- NOTE | 2024-02-16 10:00 | MHC.OFFVIS ---
Intake Visit Reasons: IUD issues Border Machine Operator Required: Yes Border Machine Operator Language: Heating Systems Installer Services: Border Machine Operator Present (in person) Border Machine Operator Name: Demetria MaganaMICHAEL Information Interpreted: non-clinical & clinical Biscuit Factory Worker: Biscuit Factory Worker Present (Demetria) Accompanied by: Self / Same As Patient Allergies Sulfa (Sulfonamide Antibiotics) [SULFA (SULFONAMIDE ANTIBIOTICS)] Allergy (Intermediate, Verified 02/16/24 10:01) rash itching HPI Comments Details: Presenting complaining of pelvic pain and bloating a few days' duration no associated urinary or GI symptoms PFSH Medical History History of anemia History of thrombosis Surgical History History of tonsillectomy History of tubal ligation History of Family History Maternal Grandmother Breast cancer Mother Uterine cancer Social History Household Members: Spouse and Children Housing: House Alcohol intake: never service: No Current occupational status: employed Sexual orientation: Straight/Heterosexual Gender identity: Female Female Reproductive History Menstrual Age of Menarche: 11 control method: progestin IUCD (Mirena) Review of Systems Const All systems reviewed & are unremarkable except as noted in HPI and below Physical Exam General: Yes no CVA tenderness External Female Exam: normal external appearance and normal appearance of the urethra Speculum Exam - Vagina: normal appearance of the vagina, normal palpation, no lesions and no masses Speculum Exam - Cervix: normal appearance of the cervix, normal palpation, no lesions, no masses, nontender and Other cervical findings present (IUD string in place) Bimanual exam- vagina & uterus: normal bimanual exam, normal palpation, uterine size normal, normal palpation, uterine shape normal, No Cervical tenderness present and non-tender Bimanual Exam- Adnexa, other: normal adnexae Back/Spine/Pelvis Back: no CVA tenderness Assessment & Plan Assessment & Plan (1) Pelvic pain: Comment: With Mirena IUD Code(s): R10.2 - Pelvic and perineal pain Category: Medical Plan: Urine dip and test done in the office were both negative. GC and chlamydia taken and pelvic ultrasound ordered. Discussed with the patient the differential diagnosis of pelvic pain. All questions answered, the patient verbalized understanding. Instructed the patient to schedule an ultrasound and a follow-up appointment in a week. All questions answered, the patient verbalized understanding and agreed with the plan. (2) Microscopic hematuria: Code(s): R31.29 - Other microscopic hematuria Category: Medical Plan: Urine dip showed microscopic hematuria, urine culture sent. Will repeat urine dip in 2 weeks. Discussed with the patient the possible causes of microscopic hematuria including but not limited to: interstitial cystitis, polyps, stones, masses, urethral inflammatory processes and others. If Urine Culture is negative and repeat urine dip in 2 weeks shows persistent microscopic hematuria, will proceed with CT abdomen/pelvis and urology referral. Instructions given the patient to schedule a 2 week urine dip follow-up appointment. All questions answered and the patient verbalized understanding. Orders: Orders US pelvic and transvaginal Today R10.2 - Pelvic and perineal pain Coding Level of Care Code Est Pt Level 3 (32049) Diagnoses Pelvic pain R10.2 Microscopic hematuria R31.29
== END 2024-02-16 11:18 | disposition home or self-care (01) ==
PROVIDERS: PCP Internal Medicine; Visit Provider Obstetrics & Gynecology
DX: R10.2 Pelvic and perineal pain (principal); R31.29 Other microscopic hematuria
CPT/HCPCS: 99213

== ENCOUNTER 2024-02-16 10:33 | Outpatient (REF) | payer OTHER, SELFPAY ==
--- NOTE | ~2024-02-16 | US_ITS ---
EXAMINATION: US PELVIS CLINICAL INFORMATION: Pelvic and perineal pain. COMPARISON: Ultrasound pelvis 11/30/2022. TECHNIQUE: Ultrasound of the pelvis is performed using both transabdominal and transvaginal transducers along with Doppler. Transvaginal imaging is performed due to inadequate visualization transabdominally. FINDINGS: Uterus: The uterus is anteverted and measures 11.4 x 4.3 x 5.9 cm. Endometrium was not optimally seen and therefore could not be measured. An IUD is in place. Fluid is present in the endocervical canal. Nabothian cysts are seen in the cervix. The uterus is smooth in contour and has normal myometrial echogenicity. No visible fibroid. Adnexa: Both ovaries are visualized and appear mildly enlarged with multiple benign-appearing cysts. There is normal color flow to the adnexa. There is no ovarian torsion. There is no pelvic ascites or fluid collection. Right ovary measures 5.2 x 3.4 x 2.6 cm for a volume of 24.1 mL. The largest cyst measures 2 cm. Left ovary measures 4.2 x 4.6 x 2.8 cm for a volume of 28.3 mL. The largest cyst measures 2.6 cm. US/US pelvic and transvaginal IMPRESSION: 1. An IUD is in place. 2. Bilateral ovarian cysts. 3. No follow up is needed. Electronically signed by: Simeon Turner MD 02/17/2024 09:15 AM [facility]
== END 2024-02-16 10:34 | disposition home or self-care (01) ==
LOC: HO.US 10:33
PROVIDERS: PCP Internal Medicine; Visit Provider Obstetrics & Gynecology
DX: R10.2 Pelvic and perineal pain (principal); R31.29 Other microscopic hematuria
CPT/HCPCS: 76830; 76856; 87086; 87088; 87186; 99212

== ENCOUNTER 2024-03-15 09:51 | Outpatient (REF) | payer OTHER, SELFPAY ==
[2024-03-15 12:50] LABS: HBsAGNum1 0.44 S/CO (0.00-0.99); HIV AB/AG Nonreactive (Nonreactive); HIV Num 1 0.22 S/CO (0.00-0.99); Hepatitis B Surface Antigen Negative (Negative); Syphilis Screen Nonreactive (Nonreactive); ~HepC Num1 0.12 S/CO (0.00-0.79); ~Hepatitis C Antibody Nonreactive (Nonreactive)
== END 2024-03-15 09:52 | disposition home or self-care (01) ==
LOC: HO.LNP 09:51
PROVIDERS: PCP Internal Medicine; Visit Provider Obstetrics & Gynecology
DX: R31.29 Other microscopic hematuria (principal); A74.9 Chlamydial infection, unspecified; Z20.2 Contact with and (suspected) exposure to infections with a predominantly sexual mode of transmission
CPT/HCPCS: 81002; 86780; 86803; 87086; 87340; 87389; 99212; 99459

== ENCOUNTER 2024-03-15 09:51 | Outpatient (AMB) | payer OTHER, SELFPAY ==
--- NOTE | 2024-03-15 10:18 | MHC.OFFVIS ---
Vital Signs 03/15/24 10:19 Height 5 ft 4 in Weight 218 lb BMI 37.4 Intake Visit Reasons: urine dip/u/s results Software Engineer Kernel Required: Yes Software Engineer Kernel Language: Pan Greaser Services: Software Engineer Kernel Present (in person) Software Engineer Kernel Name: Demetria RODRIGUEZ Information Interpreted: non-clinical & clinical Accompanied by: Daughter Allergies Sulfa (Sulfonamide Antibiotics) [SULFA (SULFONAMIDE ANTIBIOTICS)] Allergy (Intermediate, Verified 03/15/24 10:22) rash itching HPI Comments Details: Presenting for follow-up regarding her pelvic pain. The patient is doing well. The following workup was done so far: GC was negative/CT was positive, the patient received doxycycline treatment, informed her partner who was screen/treated and no sexual intercourse since then. Last visit urine test was negative. Last visit urine dip showed microscopic hematuria, urine culture grew E coli sensitive to nitrofurantoin, the patient completed a 5 day course of nitrofurantoin 100 mg p.o. b.i.d. Pelvic ultrasound showed the following: Uterus: The uterus is anteverted and measures 11.4 x 4.3 x 5.9 cm. Endometrium was not optimally seen and therefore could not be measured. An IUD is in place. Fluid is present in the endocervical canal. Nabothian cysts are seen in the cervix. The uterus is smooth in contour and has normal myometrial echogenicity. No visible fibroid. Adnexa: Both ovaries are visualized and appear mildly enlarged with multiple benign-appearing cysts. There is normal color flow to the adnexa. There is no ovarian torsion. There is no pelvic ascites or fluid collection. Right ovary measures 5.2 x 3.4 x 2.6 cm for a volume of 24.1 mL. The largest cyst measures 2 cm. Left ovary measures 4.2 x 4.6 x 2.8 cm for a volume of 28.3 mL. The largest cyst measures 2.6 cm [facility] Medical History History of anemia History of thrombosis Surgical History History of tonsillectomy History of tubal ligation History of Family History Maternal Grandmother Breast cancer Mother Uterine cancer Social History Household Members: Spouse and Children Housing: House Alcohol intake: never service: No Current occupational status: employed Sexual orientation: Straight/Heterosexual Gender identity: Female Female Reproductive History Menstrual Age of Menarche: 11 Review of Systems Const All systems reviewed & are unremarkable except as noted in HPI and below Physical Exam General: Yes no CVA tenderness External Female Exam: normal external appearance and normal appearance of the urethra Speculum Exam - Vagina: normal appearance of the vagina, normal palpation, no lesions and no masses Speculum Exam - Cervix: normal appearance of the cervix, normal palpation, no lesions, no masses and nontender Bimanual exam- vagina & uterus: normal bimanual exam, normal palpation, uterine size normal, normal palpation, uterine shape normal, No Cervical tenderness present and non-tender Bimanual Exam- Adnexa, other: normal adnexae Back/Spine/Pelvis Back: no CVA tenderness Results AMB Urinalysis Dipstick UR Leukocytes Trace Last Edit by Demetria Magana CMA on 03/15/24 10:22 UR Nitrite Negative Last Edit by Demetria Magana CMA on 03/15/24 10:22 UR Urobilinogen Normal Last Edit by Demetria Magana CMA on 03/15/24 10:22 UR Protein Negative Last Edit by Demetria Magana CMA on 03/15/24 10:22 UR Ph 7.5 Last Edit by Demetria Magana CMA on 03/15/24 10:22 UR Blood Trace Last Edit by Demetria Magana CMA on 03/15/24 10:22 UR Specific [place] 1.010 Last Edit by Demetria Magana CMA on 03/15/24 10:22 UR Ketone Negative Last Edit by Demetria Magana CMA on 03/15/24 10:22 UR Bilirubin Negative Last Edit by Demetria Magana CMA on 03/15/24 10:22 UR Glucose Negative Last Edit by Demetria Magana CMA on 03/15/24 10:22 Assessment & Plan Assessment & Plan (1) Pelvic pain: Comment: Resolved Code(s): R10.2 - Pelvic and perineal pain Category: Medical Plan: Discussed with the patient the results of ultrasound, IUD in appropriate position bilateral simple small ovarian cyst. Since the patient has resolved, instructions given the patient to call in case of recurrence of her pain, fever above 100.4 or vaginal bleeding. All questions answered, the patient verbalized understanding (2) Chlamydia contact, treated: Code(s): Z20.2 - Contact with and (suspected) exposure to infections with a predominantly sexual mode of transmission Category: Medical Plan: GC/CT taken, BV panel taken, the patient's was instructed to go to the lab to have serology STD screen, ordered. (3) Microscopic hematuria: Comment: Positive urine culture Code(s): R31.29 - Other microscopic hematuria Category: Medical Plan: Urine dip done in the office today showed persistent hematuria, since urine culture was positive for E coli sensitive to nitrofurantoin and the patient has finished her antibiotic course, will repeat urine culture if negative, and repeat urine dip 2 weeks, if persistent microscopic hematuria will proceed with microscopic hematuria workup. Instructions given the patient to schedule a follow-up appointment within 2 weeks Orders: Orders AMB Urinalysis Dipstick Today R31.29 - Other microscopic hematuria Coding Level of Care Code Est Pt Level 3 (53092) Diagnoses Pelvic pain R10.2 Chlamydia contact, treated Z20.2 Microscopic hematuria R31.29
[2024-03-15 10:19] VITALS: BMI 37.4
== END 2024-03-15 10:35 | disposition home or self-care (01) ==
PROVIDERS: PCP Internal Medicine; Visit Provider Obstetrics & Gynecology
DX: R10.2 Pelvic and perineal pain (principal); Z20.2 Contact with and (suspected) exposure to infections with a predominantly sexual mode of transmission; R31.29 Other microscopic hematuria
CPT/HCPCS: 99213

== ENCOUNTER 2024-03-15 10:34 | Outpatient (REF) | payer OTHER, SELFPAY ==
[2024-03-16 02:16] LABS: CT PCR NOT DETECTED (Not Detect.); NG PCR NOT DETECTED (Not Detect.)
[2024-03-16 08:50] LABS: Bacterial Vaginosis PCR NEGATIVE (Negative); Candida Group PCR DETECTED (Not Detect); Candida glab krusei PCR NOT DETECTED (Not Detect); Trichomonas vaginalis PCR NOT DETECTED (Not Detect)
== END 2024-03-15 10:35 | disposition home or self-care (01) ==
LOC: HO.LAB 10:34
PROVIDERS: PCP Internal Medicine; Visit Provider Obstetrics & Gynecology
DX: Z20.2 Contact with and (suspected) exposure to infections with a predominantly sexual mode of transmission (principal); R31.29 Other microscopic hematuria
CPT/HCPCS: 81515; 87491; 87591

== ENCOUNTER 2024-04-05 15:19 | Outpatient (AMB) | payer OTHER, SELFPAY ==
--- NOTE | 2024-04-05 15:29 | MHC.OFFVIS ---
Intake Visit Reasons: urine dip Wood Experimental Mechanic: Wood Experimental Mechanic Present Allergies Sulfa (Sulfonamide Antibiotics) [SULFA (SULFONAMIDE ANTIBIOTICS)] Allergy (Intermediate, Verified 03/15/24 10:22) rash itching HPI Comments Details: Presenting for follow-up. GC/CT were negative, STD screen serology were all negative. Urine culture was negative [facility] Medical History History of anemia History of thrombosis Surgical History History of tonsillectomy History of tubal ligation History of Family History Maternal Grandmother Breast cancer Mother Uterine cancer Social History Household Members: Spouse and Children Housing: House Alcohol intake: never service: No Current occupational status: employed Sexual orientation: Straight/Heterosexual Gender identity: Female Female Reproductive History Menstrual Age of Menarche: 11 Review of Systems Const All systems reviewed & are unremarkable except as noted in HPI and below Reports as per HPI and Reports no additional complaints GI Reports no additional complaints Reports no additional complaints Assessment & Plan Assessment & Plan (1) Microscopic hematuria: Code(s): R31.29 - Other microscopic hematuria Category: Medical Plan: Urine dip showed microscopic hematuria. Discussed with the patient the possible causes of microscopic hematuria including but not limited to: interstitial cystitis, polyps, stones, masses, urethral inflammatory processes and others. Next step is to proceed with CT abdomen/pelvis and urology referral. All questions answered and the patient verbalized understanding. Instructed the patient to call our office back in case a referral appointment is not scheduled, missed or canceled so that we will assist on rescheduling another appointment, the patient verbalized understanding agreed with the plan. Orders: Orders CT abdomen pelvis wo/w IV con Today R31.29 - Other microscopic hematuria Referrals Urology Referral R31.29 - Other microscopic hematuria Coding Level of Care Code Est Pt Level 3 (17781) Diagnoses Microscopic hematuria R31.29
--- OUTSIDE RECORDS SUMMARY | 2024-04-05 19:09 | XMS_ITS | Encounter Summary ---
[facility] Address [address] [place] [address] Care Team Providers Care Packing Room Worker Name Role Phone Theresa Holman MD Primary Care Provider Lisa vailable Encounter Details Date Type Department Care Team Description 12/02/2016 Release of Information Medical Records [address] [place] [id number] Abstract, Provider Social History Tobacco Use Types Packs/Day Years Used Date Smoking Tobacco: Never Alcohol Use Standard Drinks/Week Comments No 0 (1 standard drink = 0.6 oz pur e alcohol) Sex Assigned at Date Recorded Not on file documented as of this encounter Plan of Treatment Not on file documented as of this encounter Visit Diagnoses Not on filedocumented in this encounter Care Teams Packing Room Worker Relationship Specialty Start Date End Date Theresa Holman MD PCP - General Internal Medicine 11/30/16 documented as of this encounter
--- OUTSIDE RECORDS SUMMARY | 2024-04-05 19:09 | XMS_ITS | Clinical Summary ---
Author Organization [facility] Address [address] [place] [address] Care Team Providers Care Dairy Inspector Name Role Phone Theresa Holman MD Primary Care Provider Lisa vailable Allergies Active Allergy Reactions Severity Noted Date Comments Naproxen 12/01/2016 Fergon 12/01/2016 Fluoxetine Hcl 12/01/2016 Gabapentin 12/01/2016 Sulfa Drugs 12/01/2016 Medications Medication Sig Dispensed Refills Start Date End Date Status phentermine (ADIPEX-P) 37.5 MG tablet Take 37.5 mg by mouth every morning (before breakfast). 0 Active omeprazole (PRILOSEC) 20 MG capsule Take 20 mg by mouth daily. 0 Active Ferrous Gluconate 240 (27 FE) MG Tab Take by mouth. 0 Active Acetaminophen (TYLENOL 8 HOUR OR) Take 500 mg by mouth. 0 Active Active Problems Problem Noted Date Depression 12/22/2016 GERD (gastroesophageal reflux disease) 1 Cholelithiasis 12/22/2016 Overview: 2016 History of DVT (deep vein thrombosis) Overview: RLE, post ~2010 Fibromyalgia 12/22/2016 Migraine Anemia Immunizations Name Administration Dates Next Due Hepatitis B > 19yrs 05/28/2014 MMR (Qssmsud-Dnbyr-Tetliza) 05/28/2014 PPD-Negative Response(External) 03/29/2014 Tdap 01/15/2014 Family History Medical History Relation Name Comments Diabetes Father Hypertension CA Breast Maternal Grandmother Hypertension Mother Leukemia Paternal Grandfather Hyperte nsion CA Colon Paternal Grandmother Relation Name Status Comments Father Maternal Grandmother Mother Paternal Grandfather Paternal Grandmother Social History Tobacco Use Types Packs/Day Years Used Date Smoking Tobacco: Never Alcohol Use Standard Drinks/Week Comments No 0 (1 standard drink = 0.6 oz pur e alcohol) Sex Assigned at Date Recorded Not on file Last Filed Vital Signs Vital Sign Reading Time Taken Comments Blood Pressure 130/90 12/01/2016 10:05 AM EDT Pulse 80 12/01/2016 10:05 AM EDT Temperature - - Respiratory Rate 16 12/01/2016 10:05 AM EDT Oxygen Saturation - - Inhaled Oxygen Concentration - - Weight 92.1 kg (203 lb) 12/01/2016 10:05 AM EDT Height 160 cm (5' 3 ) 12/01/2016 10:05 AM EDT Body Mass Index 35.96 12/01/2016 10:05 AM EDT Plan of Treatment Health Maintenance Due Date Last Done Comments Covid-19 Vaccine (#1) 06/12/1979 TOBACCO CHECK/ADVISE 1996 CHOLESTEROL SCREENING 1998 CERVICAL CANCER SCREENING 12/12/1999 BASELINE HEALTH EXAM 40-64 2018 MAMMOGRAM 2018 INFLUENZA (#1) 2023 DTAP/TDAP/TD (2 - Td or Tdap) 01/16/2024 01/15/2014 BMI CHECK/ADVISE 03/07/2024 PNEUMOCOCCAL VACCINE FOR HIGH RISK PATIENTS (#1) 12/11 Care Teams Dairy Inspector Relationship Specialty Start Date End Date Theresa Holman MD PCP - General Internal Medicine 11/30/16
--- OUTSIDE RECORDS SUMMARY | 2024-04-05 19:09 | XMS_ITS | Clinical Summary ---
Author Organization [facility] ity Address [id number] [place] [phone] Care Team Providers Care Filter Screen Cleaner Name Role Phone Theresa Holman MD Primary Care Provider [phone] Social History Tobacco Use Types Packs/Day Years Used Date Smoking Tobacco: Never Assessed Sex and Gender Information Value Date Recorded Sex Assigned at Not on file Gender Identity Not on file Sexual Orientation Not on file Plan of Treatment Health Maintenance Due Date Last Done Comments Breast Cancer Screening 1980 Cervical Cancer Screening: P ap Smear 12/12/1999 Hepatitis B Vaccines (2 of 3 - 19+ 3-dose series) 06/25/2014 05/28/2014 Colorectal Cancer Screening: Colonoscopy 02/02/2022 Depression Screening 02/02/2022 HIV Screening 02/02/2022 Hepatitis C Screening 02/02/2022 Social Influencers of Health Screening 02/02/2022 COVID-19 Vaccine (2023-2 5 season) 2023 Influenza Vaccine (#1) 2023 DTaP,Tdap,and Td Vaccines (2 - Td or Tdap) 01/16/2024 01/15/2014 MMR Vaccines Aged Out 05/28/2014 No longer eligi ble based on patient's age to complete this topic HIB Vaccines Aged Out No longer eligi ble based on patient's age to complete this topic HPV Vaccines Aged Out No longer eligi ble based on patient's age to complete this topic Hepatitis A Vaccines Aged Out No long er eligible based on patient's age to complete this topic IPV Vaccines Aged Out No longer eligi ble based on patient's age to complete this topic Meningococcal ACWY Vaccine Aged Out N o longer eligible based on patient's age to complete this topic Pneumococcal Vaccine: Pediat rics (0 to 5 Years) and At-Risk Patients (6 to 64 Years) Aged Out No longer eligi ble based on patient's age to complete this topic RSV Immunization Patients Un ashley 20 months Aged Out No longer eligible b ased on patient's age to complete this topic Varicella Vaccines Aged Out No longer eligible based on patient's age to complete this topic Care Teams Filter Screen Cleaner Relationship Specialty Start Date End Date Theresa Holman MD [address] [facility] [address] [place], [place] PCP - General Internal Medicine 11/30/16
== END 2024-04-05 15:48 | disposition home or self-care (01) ==
PROVIDERS: PCP Internal Medicine; Visit Provider Obstetrics & Gynecology
DX: R31.29 Other microscopic hematuria (principal)
CPT/HCPCS: 99213

== ENCOUNTER → 2024-04-05 15:19 | Outpatient (BNVA) | payer OTHER, SELFPAY | PROVIDERS: PCP Internal Medicine; Visit Provider Obstetrics & Gynecology | DX: R31.29 Other microscopic hematuria (principal) | CPT/HCPCS: 99212 ==

== ENCOUNTER 2024-11-28 17:27 | Emergency (ER) | payer OTHER, SELFPAY ==
--- OUTSIDE RECORDS SUMMARY | 2024-07-09 07:00 | XMS_ITS ---
Author Organization [facility] Address [address] [place] [phone] Care Team Providers Care Car Carder Name Role Phone Theresa Holman Primary Care Provider UnavailFelipe Haas Jr [phone] REASON FOR VISIT Patient presents today for a COLON SCREENING Encounters Encounter Location Date Provider Diagnosis [facility] [address] [place] [phone] 07/09/2024 Felipe Boogie Jr Plan Of Treatment No Information Progress Notes * LUCIA PETTYDOB:1980 (43 yo F)Acc No.[id number]:07/09/2024 Progress Notes Patient: LUCIA GAN Provider: Behzad Boogie MD :1980 A ge:43 Y S ex:Female Date:07/09/2024 Address:[address] [place], [place] [id number] Pcp:Theresa Holman Subjective: * Chief Complaints: * 1 . Patient presents today for a COLON SCREENING. * Medical History: Objective: * Vitals: Assessment: Plan: * Treatment: * * The named appointment provid er may or may not be the originator of this progress note, and it is not deemed complete until electronically signed by the appointment provider. Sign off status: Pending * Provider: Behzad Boogie MD Date: 07/09/2024 Generated for Tony leslie/Carolyn/Charleneitting on: 0 11/28/2024 08:34 PM EDT
--- NOTE | ~2024-11-28 | US_ITS ---
CLINICAL HISTORY: dvt Venous duplex ultrasound left lower extremity Comparison: None provided Findings: The visualized deep veins are fully compressible with normal Doppler color flow and spectral tracings. No popliteal cyst. IMPRESSION: 1. Negative for left lower extremity deep vein thrombosis. This document has been electronically signed by: Jamil Raines MD on 11/28/2024 22:19:36
[2024-11-28 17:32] VITALS: BP 158/74; PULSE 77; RESP 18; TEMP 36.8; O2SAT 98; BMI 40.2
[2024-11-28 18:20] LABS: MANUAL DIFF FLAG NO
[2024-11-28 18:21] LABS: Hematocrit 37.0 % (37.0-47.0); Hemoglobin 12.3 g/dl (12.0-16.0); Imm Gran Abs Auto 0.03 X10*3/uL (0.00-0.03); Imm Gran Pct Auto 0.3 % (0.0-0.4); Lymphocytes Absolute Auto 2.2 X10*3/uL (1.2-4.9); Mean Corpuscular HGB Conc 33.2 g/dl (31.0-35.0); Mean Corpuscular Hemoglobin 26.6 pg (27.0-33.0); Mean Corpuscular Volume 79.9 fL (80.0-98.0); NRBC Abs Auto 0.000 X10*3/uL (0.0-0.012); NRBC Pct Auto 0.0 /100WBC (0.0-0.2); Platelet Count 322 X10*3/uL (160-400); Red Blood Count 4.63 X10*6/uL (4.20-5.50); White Blood Count 8.9 X10*3/uL (4.8-10.8)
[2024-11-28 18:29] LABS: INTERNATIONAL NORM RATIO 1.1 (0.9-1.1); Prothrombin Time 12.8 SEC (10.9-12.4)
[2024-11-28 18:51] LABS: Alanine Aminotransferase 17 U/L (0-31); Albumin Level 3.9 g/dL (3.5-5.0); Alkaline Phosphatase 72 U/L (39-117); Anion Gap 11 (12-20); Aspartate Amino Transferase 16 U/L (5-31); Blood Urea Nitrogen 16 mg/dL (9-16); Calcium 8.8 mg/dL (8.4-10.2); Carbon Dioxide 26 mmol/L (22-29); Chloride 109 mmol/L (96-108); Creatinine Clr Calc Pharmacy 108.5; Estimated Glomerular Filt Rate > 60; Potassium 4.4 mmol/L (3.3-5.1); Sodium 142 mmol/L (135-145); Total Protein 7.1 g/dL (6.5-8.0)
[2024-11-28 20:11] VITALS: BP 146/86; PULSE 73; RESP 16; TEMP 36.7; O2SAT 96
--- NOTE | 2024-11-28 20:15 | PC.NURSE ---
pt reports pain in L lower extremity. pedal pulses +2, reports slight diminished sensation in comparison to the right with light tough. respirations even and unlabored, all v/s WNL.
--- NOTE | 2024-11-28 20:23 | ED_ITS ---
HPI - General Adult General Chief complaint: Extremity Injury, Lower Stated complaint: Right leg pain/swelling. hx blood clot Time Seen by Provider: 11/28/24 20:23 Source: patient Mode of arrival: ambulatory Limitations: no limitations History of Present Illness ED Provider: Dr. Richard [facility] narrative: This is a 43-year-old female presented hospital today for swelling of the left ankle. Patient stated that this has been going on for a week now. 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 She is complaining of pain in her left ankle more tender on movement. Denies any trauma no history of gout Related Data Home Medications ?Medication ?Instructions ?Recorded ?Confirmed apixaban 5 mg tablet (Eliquis) 5 mg PO BID 08/31/21 famotidine 40 mg tablet 40 mg PO BEDTIME 08/31/21 losartan 50 mg tablet 50 mg PO DAILY 09/05/23 Previous Rx's ?Medication ?Instructions ?Recorded clotrimazole-betamethasone 1 1 appl topical BID 5 days #45 grams 01/14/22 %-0.05 % topical cream cidbsrfeuh-nrhsysxpijume-diqtojzp 1 tab PO Q6H PRN hea dache #20 tabs 09/29/22 50 mg-325 mg-40 mg tablet doxycycline hyclate 100 mg capsule 100 mg PO BID 14 da ys #28 caps 02/17/24 metronidazole 500 mg tablet 500 mg PO BID 14 days #28 tabs 02/17/24 nitrofurantoin 100 mg PO BID 5 days #10 cap s 02/20/24 monohydrate/macrocrystals 100 mg capsule (Macrobid) lidocaine 5 % topical patch 1 patch topical DAILY #15 ea 11/28/24 methylprednisolone 4 mg tablets in 4 mg PO DAILY #21 e a 11/28/24 a dose pack (Medrol (Landen)) Allergies Allergy/AdvReac Type Severity Reaction Status Date / Time Sulfa (Sulfonamide Allergy Intermediate rash Verified 11/28/24 17:39 Antibiotics) (SULFA itching (SULFONAMIDE ANTIBIOTICS)) Review of Systems 2 Review of Systems: Pertinent review of systems as mentioned in HPI. All other system otherwise negative. [facility] Past Medical History [facility] Narrative: Medical history as mentioned in [facility] Medical History History of anemia History of thrombosis Surgical History History of tonsillectomy History of tubal ligation History of Family History Family History Maternal Grandmother Breast cancer Mother Uterine cancer Social History Social History Household Members: Spouse and Children Housing: House Alcohol intake: never Smoked in Last 30 Days: No Use of substances other than those prescribed or required for medical reasons: No Advance Directives: No Advance Directives Information Provided: No Do you have a plan to hurt others: No Plan service: No Current occupational status: employed Sexual orientation: Straight/Heterosexual Gender identity: Female Physical Exam ED Exam Exam: General: Pleasant, no distress, interacting appropriately Head: Normacephalic, atraumatic Extremities: Slight swelling of the left ankle does not appear to be erythema. Patient does have tenderness on palpation, DP pulse intact Neurological: Awake and alert, no facial droop noted Skin: Warm and dry Psychiatric: Appropriate mood and thoughts Vital Signs: Vital Signs - 24 hr 11/28/24 17:32 11/28/24 20:11 Temperature 98.3 F 98.1 F Pulse Rate 77 73 Respiratory Rate 18 16 Blood Pressure 158/74 H 146/86 H Pulse Oximetry 98 96 Oxygen Delivery Method Room Air Room Air BMI result Body Mass Index 40.2 Medications Administered Discontinued Medications Generic Name Dose Route Start Last Admin Trade Name Freq PRN Reason Stop Dose Admin Acetaminophen 975 mg 11/28/24 20:59 11/28/24 21:07 Acetaminophen 325 Mg Tablet PO 11/28/24 21:00 975 mg ONCE ONE Administration Lidocaine 1 patch 11/28/24 20:59 11/28/24 21:07 Lidocaine 4 % Patch Adh..Patch TRANSDERMA 11/28/24 21:00 1 patch ONCE ONE Administration Protocol Medical Decision Making Medical Decision Making MDM Narrative: This is a 43-year-old female presented hospital today for evaluation of left ankle swelling. Low suspicion for PE however patient is on Eliquis at this time. We will plan to obtain a Doppler imaging as patient has concern for DVT in the left side. I suspect this is likely ankle arthritis or there this is inflammatory in nature. I do not think this is septic arthritis. Does not appear to be erythematous. Patient does not appear to be toxic upon evaluation. Ultrasound did not show any signs of DVT. We will plan to discharge patient with a Medrol Dosepak and instructions take Tylenol as needed for her left ankle pain. Lidocaine patch will be prescribed the patient as well. Patient will be discharged. interlacer was used for this encounter. Differential Diagnosis Differential Diagnoses: The differential diagnosis associated with the presentation includes Gout, septic arthritis, arthritis, DVT Lab Data MDM Lab Attestation statement: I reviewed the patient's lab results. 11/28/24 18:17 11/28/24 18:17 Labs: Lab Results 11/28/24 Range/Units 18:17 WBC 8.9 (4.8-10.8) X10*3/uL RBC 4.63 (4.20-5.50) X10*6/uL Hgb 12.3 (12.0-16.0) g/dl Hct 37.0 (37.0-47.0) % MCV 79.9 L (80.0-98.0) fL MCH 26.6 L (27.0-33.0) pg MCHC 33.2 (31.0-35.0) g/dl RDW 13.8 (11.0-16.0) % Plt Count 322 (160-400) X10*3/uL MPV 9.7 (9.4-12.3) fL Immature Gran % (Auto) 0.3 (0.0-0.4) % Neut % (Auto) 62.5 (45-73) % Lymph % (Auto) 24.9 (20-40) % Crenshaw % (Auto) 7.2 (2-11) % Eos % (Auto) 3.9 (0-4) % Baso % (Auto) 1.2 (0-2) % Lymph # (Auto) 2.2 (1.2-4.9) X10*3/uL Crenshaw # (Auto) 0.6 (0.1-1.2) X10*3/uL Eos # (Auto) 0.4 (0.0-0.4) X10*3/uL Baso # (Auto) 0.1 (0.0-0.2) X10*3/uL Abs Immat Gran (auto) 0.03 (0.00-0.03) X10*3/uL Absolute Neuts (auto) 5.6 (2.0-8.3) x10*3/uL Absolute Nucleated RBC 0.000 (0.0-0.012) X10*3/uL Nucleated RBC % (auto) 0.0 (0.0-0.2) /100WBC PT 12.8 H (10.9-12.4) SEC INR 1.1 (0.9-1.1) Sodium 142 (135-145) mmol/L Potassium 4.4 (3.3-5.1) mmol/L Chloride 109 H (96-108) mmol/L Carbon Dioxide 26 (22-29) mmol/L Anion Gap 11 L (12-20) BUN 16 (9-16) mg/dL Creatinine 0.75 (0.5-1.4) mg/dL Estim Creat Clear Calc 108.5 Estimated GFR > 60 Random Glucose 92 (60-115) mg/dL Calcium 8.8 (8.4-10.2) mg/dL Total Bilirubin 0.3 (0.0-1.0) mg/dL AST 16 (5-31) U/L ALT 17 (0-31) U/L Alkaline Phosphatase 72 (39-117) U/L Total Protein 7.1 (6.5-8.0) g/dL Albumin 3.9 (3.5-5.0) g/dL Independent Interpretation I performed an independent interpretation of an: Ultrasound Radiology Impression Discussion of test interpretation with radiology: I have reviewed the radiologist's reading. Discharge Plan Discharge Clinical Impression: Arthritis Ankle pain, left Qualifiers: Chronicity: acute Qualified Code(s): M25.572 - Pain in left ankle and joints of left foot Patient Disposition: Home, Self-Care Prescriptions: New methylprednisolone [Medrol (Landen)] 4 mg tablets,dose pack 4 mg PO DAILY Qty: 21 0RF lidocaine 5 % adhesive patch,medicated 1 patch topical DAILY Qty: 15 0RF Rx Instructions: leave on most painful area for up to 12 hrs No Action doxycycline hyclate 100 mg capsule 100 mg PO BID 14 Days Qty: 28 0RF metronidazole 500 mg tablet 500 mg PO BID 14 Days Qty: 28 0RF nitrofurantoin monohyd/m-cryst [Macrobid] 100 mg capsule 100 mg PO BID 5 Days Qty: 10 0RF kkfjhvurep-tzgnyebakdqnf-qqgw 50-325-40 mg tablet 1 tab PO Q6H PRN (Reason: headache) Qty: 20 0RF Eliquis 5 mg tablet 5 mg PO BID famotidine 40 mg tablet 40 mg PO BEDTIME Mirena 20 mcg/24 hours (7 yrs) 52 mg intrauterine device 1 device intrauterine ONCE Qty: 1 0RF clotrimazole-betamethasone 1-0.05 % cream 1 appl topical BID 5 Days Qty: 45 0RF losartan 50 mg tablet 50 mg PO DAILY Print Language: Wolof
--- OUTSIDE RECORDS SUMMARY | 2024-11-28 20:34 | XMS_ITS | Patient Health Record ---
Author Organization [facility] Address [address] [place] [phone] Care Team Providers Care Ict Sales Representative Name Role Phone Theresa Holman Primary Care Provider UnavailFelipe Haas Jr [phone] Reason For Referral No Information Encounters Encounter Location Date Provider Diagnosis [facility] [address] [place] [phone] 07/09/2024 Felipe Boogie Jr Plan Of Treatment No Information Insurance Providers Payer Name Payer Address Payer Phone Subscriber Number Group Number Insured Name Patient Relationship to Insured Coverage Start Date Coverage End Date [employer] ([employer] L) [address] [place] [phone] [id number] LUCIA PETTY Self - patient is the insured
--- OUTSIDE RECORDS SUMMARY | 2024-11-28 20:34 | XMS_ITS | Clinical Summary ---
Author Organization [facility] Address [address] [place] [address] Phone Care Team Providers Care Senior J2Ee Developer Name Role Phone Theresa Holman MD Primary Care Provider Social History Tobacco Use Types Packs/Day Years Used Date Smoking Tobacco: Never Assessed Comments Unknown Sex and Gender Information Value Date Recorded Sex Assigned at Not on file Legal Sex Female 10:22 AM EST Gender Identity Not on file Sexual Orientation Not on file Plan of Treatment Health Maintenance Due Date Last Done Comments Breast Cancer Screening 1980 Cervical Cancer Screening: P ap Smear 12/12/1999 Hepatitis B Vaccines (2 of 3 - 19+ 3-dose series) 06/25/2014 05/28/2014 Colorectal Cancer Screening: Colonoscopy 02/02/2022 HIV Screening 02/02/2022 Hepatitis C Screening 02/02/2022 Social Influencers of Health Screening 02/02/2022 DTaP,Tdap,and Td Vaccines (2 - Td or Tdap) 01/16/2024 01/15/2014 Depression Screening 03/07/2024 COVID-19 Vaccine ( - 2023-2 5 season) 2024 Influenza Vaccine (#1) 2024 MMR Vaccines Aged Out 05/28/2014 No longer [...] patient's age to complete this topic Meningococcal B Vaccine Aged Out No l onger eligible based on patient's age to complete this topic Pneumococcal Vaccine: Pediat rics (0 to 5 Years) and At-Risk Patients (6 to 49 Years) Aged Out No longer eligi ble based on patient's age to complete this topic RSV Immunization Patients Un ashley 20 months Aged Out No longer eligible b ased on patient's age to complete this topic Varicella Vaccines Aged Out No longer eligible based on patient's age to complete this topic Insurance [facility] PL[facility] Care Teams Senior J2Ee Developer Relationship Specialty Start Date End Date Theresa Holman MD [address] [place] PCP - General Internal Medicine 11/30/16
[2024-11-28] MEDS: Lidocaine 4 % Patch ADH..PATCH 1 PATCH TRANSDERMA (21:07)
--- NOTE | 2024-11-28 22:06 | PC.NURSE ---
pt states pain has reduced she is feeling better. sleeping when i first entered the room.
[2024-11-28 23:08] VITALS: BP 131/76; PULSE 71; RESP 19; TEMP 37; O2SAT 99
== END 2024-11-28 23:09 | disposition home or self-care (01) ==
PROVIDERS: Emergency Provider Student in an Organized Health Care Education/Training Program; PCP Family Medicine
DX: M19.09 Primary osteoarthritis, other specified site (principal); Z86.718 Personal history of other venous thrombosis and embolism; Z79.01 Long term (current) use of anticoagulants; Z79.899 Other long term (current) drug therapy
CPT/HCPCS: 36415; 80053; 85025; 85610; 93971; 99284

== ENCOUNTER → 2024-11-28 20:23 | Outpatient (BNV) | payer OTHER, SELFPAY | PROVIDERS: Emergency Provider Student in an Organized Health Care Education/Training Program; PCP Family Medicine; Visit Provider Radiology Diagnostic Radiology | DX: R22.42 Localized swelling, mass and lump, left lower limb (principal) | CPT/HCPCS: 93971 ==